=== PATIENT | male | born 1990 | race African-American/Black ===

== ENCOUNTER 2017-03-14 14:11 | Emergency (ER) | payer BC ==
--- NOTE | ~2017-03-14 | CR63 ---
[facility]. [facility] A Service of [facility] RADIOLOGY TEXT RESULTS PATIENT: EN WYNN LOCATION: SED : [birth year] UNIT #: [id number] AGE: [address]: Rolan Hernandez MD SEX: M ORDER DR: [id number] [place] [id number] E MR#: [id number] Acc #: [id number] NAME: EN WYNN : 1990 SEX: M STUDY DATE/TIME: 03/14/2017 14:46 UNIT: SED ROOM: STUDY DESCRIPTION: CR Chest 2 View Attending Physician: Rolan Hernandez M.D. Ordering Physician: Rolan Hernandez M.D. Primary Care Physician: No Primary Care Physician MEDICAL IMAGING REPORT This report is preliminary unless electronic signature is present. EXAM Two-view chest HISTORY Syncopal episode today; complains of chest pain. FINDINGS PA and lateral examination of the chest upright shows a good expansion of the parenchyma with a normal distribution of the pulmonary vascularity. There is no indication of congestion, effusion, infiltrate, tumor, or nodular density. The pleural reflections and diaphragmatic contours are normal. The cardiac silhouette and mediastinal anatomy is within normal limits. IMPRESSION Normal chest. Dictated by... Jessica Bradshaw M.D. THIS IS AN ELECTRONICALLY VERIFIED REPORT Jessica Bradshaw M.D. at 03/15/2017 2:44 PM Naveen TD: 03/14/2017 16:24 JOB #: [id number] MEDICAL IMAGING REPORT Page 1 of 1
--- NOTE | ~2017-03-14 | CR58 ---
[facility]. [facility] A Service of [facility] RADIOLOGY TEXT RESULTS PATIENT: EN WYNN LOCATION: SED : [birth year] UNIT #: [id number] AGE: [address]: Rolan Hernandez MD SEX: M ORDER DR: [id number] [place] [id number] E MR#: [id number] Acc #: [id number] NAME: EN WYNN : 1990 SEX: M STUDY DATE/TIME: 03/14/2017 14:46 UNIT: SED ROOM: STUDY DESCRIPTION: CR Cervical Spine 2 or 3 Views Attending Physician: Rolan Hernandez M.D. Ordering Physician: Rolan Hernandez M.D. Primary Care Physician: No Primary Care Physician MEDICAL IMAGING REPORT This report is preliminary unless electronic signature is present. EXAM C-spine 3 views HISTORY 26-year-old male, neck pain, passed out today, neck pain for 3 days. FINDINGS AP and lateral projections of the cervical spine show satisfactory preservation of the cervical lordosis. The cervical soft tissues are normal. All anterior and posterior elements in the cervical area are anatomically normal without identifiable fracture, dislocation, malignant lytic or sclerotic change, or arthritis. There is no congenital defect apparent. IMPRESSION Normal cervical spine. Dictated by... Jessica Bradshaw M.D. THIS IS AN ELECTRONICALLY VERIFIED REPORT Jessica Bradshaw M.D. at 03/15/2017 2:44 PM MARCEL/aliyah TD: 03/14/2017 16:21 JOB #: [id number] MEDICAL IMAGING REPORT Page 1 of 1
--- NOTE | ~2017-03-14 | CT52 ---
[facility] A Service [facility] RADIOLOGY TEXT RESULTS PATIENT: EN WYNN LOCATION: SED : [birth year] UNIT #: [id number] AGE: [address]: Rolan Hernandez MD SEX: M ORDER DR: [id number] [place] [id number] E MR#: [id number] Acc #: [id number] NAME: EN WYNN : 1990 SEX: M STUDY DATE/TIME: 03/14/2017 15:55 UNIT: SED ROOM: STUDY DESCRIPTION: CT Cervical Spine Wo Cont Attending Physician: Rolan Hernandez M.D. Ordering Physician: Rolan Hernandez M.D. Primary Care Physician: No Primary Care Physician MEDICAL IMAGING REPORT This report is preliminary unless electronic signature is present. EXAMINATION CT cervical spine without contrast. DATE 03/14/2017 HISTORY Neck pain for 3 days. Syncopal episode today. COMPARISON Cervical spine radiograph, 03/14/2017 at 14:46. TECHNIQUE This CT exam was performed with one or more of the following radiation dose reduction techniques: automatic exposure control, adjustment of mA and/or kV according to patient size, and iterative reconstruction. FINDINGS No acute cervical spine fracture or subluxation is seen. There is mild exaggeration of the normal cervical lordosis at C6-7. Disc space height appears well preserved. Imaged lung apices appear clear. Imaged paraspinal soft tissues appear grossly unremarkable. IMPRESSION Normal cervical spine CT. Dictated by... Yumiko Andrews M.D. THIS IS AN ELECTRONICALLY VERIFIED REPORT Yumiko Andrews M.D. at 03/15/2017 8:[address] [facility] A Service [facility] RADIOLOGY TEXT RESULTS PATIENT: EN WYNN LOCATION: SED : [birth year] UNIT #: [id number] AGE: [address]: Rolan Hernandez MD SEX: M ORDER DR: Ruby TD: 03/14/2017 17:04 JOB #: [id number] MEDICAL IMAGING REPORT Page 1 of 1
--- NOTE | ~2017-03-14 | EKG ---
PATIENT: EN WYNN UNIT #: [id number] Ventricular Rate: 77 BPM Atrial Rate: 77 BPM P-R Interval: 148 ms QRS Duration: 94 ms Q-T Interval: 338 ms QTC Calculation(Bezet): 382 ms P Currie: 72 degrees Calculated R Currie: 91 degrees Calculated T Currie: 67 degrees Diagnosis Line: Normal sinus rhythm Diagnosis Line: Right atrial enlargement Diagnosis Line: Rightward axis Diagnosis Line: Septal infarct , age undetermined Diagnosis Line: Abnormal ECG Diagnosis Line: No previous ECGs available Diagnosis Line: Confirmed by DANIELLE SCHWARTZ MD ([id number]) on Diagnosis Line: 03/15/2017 4:47:11 PM INTERPRETING MD: EFREN HENDRIX
--- NOTE | ~2017-03-14 | CT71 ---
[facility] A Service [facility] RADIOLOGY TEXT RESULTS PATIENT: EN WYNN LOCATION: SED : [birth year] UNIT #: [id number] AGE: [address]: Rolan Hernandez MD SEX: M ORDER DR: [id number] [place] [id number] E MR#: [id number] Acc #: [id number] NAME: EN WYNN : 1990 SEX: M STUDY DATE/TIME: 03/14/2017 16:03 UNIT: SED ROOM: STUDY DESCRIPTION: CT Head Wo Contrast Attending Physician: Rolan Hernandez M.D. Ordering Physician: Rolan Hernandez M.D. Primary Care Physician: No Primary Care Physician MEDICAL IMAGING REPORT This report is preliminary unless electronic signature is present. EXAM CT head without contrast. INDICATION Head and neck pain for the past 3 days with a syncopal episode today. PROCEDURE Unenhanced CT of the head. This CT exam was performed with one or more of the following radiation dose reduction techniques: automatic exposure control, adjustment of mA and/or kV according to patient size, and iterative reconstruction. COMPARISON None FINDINGS No acute hemorrhage, abnormal mass effect, extraaxial fluid collection, or hydrocephalus. No evidence for acute or early subacute large territory infarct. No depressed calvarial fracture. The paranasal sinuses and mastoid air cells are clear. IMPRESSION No acute intracranial findings. Dictated by... Frank Diaz M.D. THIS IS AN ELECTRONICALLY VERIFIED REPORT Frank Diaz M.D. at 03/15/2017 10:08 AM [facility] A Service [facility] RADIOLOGY TEXT RESULTS PATIENT: EN WYNN LOCATION: SED : [birth year] UNIT #: [id number] AGE: [address]: Rolan Hernandez MD SEX: M ORDER DR: Erum TD: 03/14/2017 16:58 JOB #: [id number] MEDICAL IMAGING REPORT Page 1 of 1
[2017-03-14 14:57] LABS: BASOPHIL# 0.1 X10e3 (0-0.3); BASOPHIL% 0.7 % (0-2.5); EOSINOPHIL% 0.2 % (0.0-7.0); HEMOGLOBIN 15.1 gm/dL (13.0-16.0); LYMPHOCYTE# 2.5 X10e3 (1.0-3.5); LYMPHOCYTE% 16.2 % (17.0-45.0); MEAN CELL VOLUME 94.9 FL (83-96); MEAN CORPUSCULAR HEMOGLOBIN 32.7 PG (28-34); MEAN CORPUSCULAR HGB CONC 34.5 g/dL (30-36); MEAN PLATELET VOLUME 7.2 FL (6.5-11.5); MONOCYTE# 1.4 X10e3 (0-1.0); MONOCYTE% 9.1 % (3.0-12.0); NEUTROPHIL# 11.2 X10e3 (1.5-7.1); NEUTROPHIL% 73.8 % (40-75); PLATELET COUNT 250 X10e3 (140-420); RED BLOOD COUNT 4.63 X10e (3.90-5.60); RED CELL DISTRIBUTION WIDTH 12.8 % (11.0-15.5); WHITE BLOOD COUNT 15.2 X10e3 (4.0-10.5)
[2017-03-14 15:01] LABS: POC - CKMB 1.1 ng/mL (0.0-7.9); POC - TROPONIN <0.05 ng/mL (<=0.05)
[2017-03-14 15:19] LABS: ALBUMIN SERUM 5.1 g/dL (3.5-5.0); ALKALINE PHOSPHATASE 47 U/L (32-92); ALT (SGPT) 17 U/L (10-40); AST (SGOT) 24 U/L (10-42); BILIRUBIN, DIRECT 0.1 mg/dL (0.0-0.2); BILIRUBIN,INDIRECT 0.8 mg/dL (0.0-0.9); BILIRUBIN,TOTAL 0.9 mg/dL (0.2-2.0); BLOOD UREA NITROGEN 19 mg/dL (9-23); BUN/CREATININE RATIO 17.27; CALCIUM SERUM 9.5 mg/dL (8.4-10.2); CARBON DIOXIDE 27 mmol/L (22-31); CHLORIDE 99 mmol/L (100-111); CREATININE SERUM 1.1 mg/dL (0.6-1.4); GLOM FILT RATE Estimated 108.3 mL/min (>60); GLUCOSE FASTING 68 mg/dL (70-110); POTASSIUM 3.7 mmol/L (3.5-5.1); PROTEIN TOTAL SERUM 7.9 g/dL (6.0-8.3); SODIUM 135 mmol/L (135-145)
[2017-03-14 15:28] LABS: DIFF IND NO
[2017-03-14 15:29] LABS: ALCOHOL BLOOD <5 mg/dL (0)
[2017-03-14 15:35] LABS: AMPHETAMINE NEG (NEG); BARBITURATES NEG (NEG); BENZODIAZEPINES NEG (NEG); COCAINE NEG (NEG); MARIJUANA NEG (NEG); OPIATES NEG (NEG); TRICYCLIC ANTIDEPRESSANTS NEG (NEG); U METHADONE NEG (NEG)
== END 2017-03-14 16:52 | disposition home or self-care (01) ==
LOC: SED 14:11
PROVIDERS: Emergency Medicine
DX: M54.2 Cervicalgia (principal); R55 Syncope and collapse; F17.200 Nicotine dependence, unspecified, uncomplicated
CPT/HCPCS: 36415; 70450; 71020; 72040; 72125; 80048; 80076; 80307; 82553; 84484; 85025; 93005; 96372; 99284; G0480; J1885